=== PATIENT | female | born 1950 | race Caucasian/White ===

== ENCOUNTER 2022-12-25 06:38 | Day surgery (SDC) | payer MEDICARE, OTHER ==
[~2022-12-25] VITALS: Ht 162.6 cm; Wt 80.6 kg
[~2022-12-25 06:38] MED LIST: FLAX1CAP5 PO; NS 1,000 ML IV ONE
[2022-12-25] MEDS ORDERED: propofoL 500 MG/50 ML VIAL As Ordered ONE (07:23)
[2022-12-25] MEDS ORDERED: LIDOCAINE 2% 100MG/5ML SDV (FOR ANES.) As Ordered ONE (07:23)
[2022-12-25 07:58] VITALS: TEMP 96.8
[2022-12-25 08:15] VITALS: BP 119/80; O2SAT 95
== END 2022-12-25 08:28 | disposition home or self-care (01) ==
LOC: M OPP 06:38
PROVIDERS: ATTEND Surgery
DX: D12.6 Benign neoplasm of colon, unspecified (principal); K57.30 Diverticulosis of large intestine without perforation or abscess without bleeding; R19.5 Other fecal abnormalities; Z79.1 Long term (current) use of non-steroidal anti-inflammatories (NSAID); Z79.899 Other long term (current) drug therapy